=== PATIENT | male | born 1990 | race Caucasian/White ===

== ENCOUNTER 2020-08-13 21:59 | Emergency (ER) | payer OTHER, SELFPAY ==
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
[2020-08-13 22:02] VITALS: BP 143/97; PULSE 90; RESP 18; TEMP 36.2; O2SAT 99
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
[2020-08-13] MEDS: MORPHINE SULFATE (*CRX) 4 MG/ML INJ IV PUSH (22:50)
[2020-08-13 22:57] LABS: Basophils Absolute Auto 0.1 K/mm3 (0.0-0.1); Basophils Percent Auto 0.9 % (0.2-1.2); Eosinophils Absolute Auto 0.2 K/mm3 (0-0.3); Eosinophils Percent Auto 1.6 % (0-4.4); Hematocrit 44.2 % (42.0-52.0); Hemoglobin 14.4 g/dL (14.0-18.0); Immature Granulocyte Absolute 0.07 K/mm3 (0.00-0.031); Immature Granulocyte Percent A 0.8 % (0-0.5); Lymphocytes Absolute Auto 2.72 K/mm3 (0.9-3.2); Lymphocytes Percent Auto 29.7 % (18.3-44.2); Mean Corpuscular HGB Conc 32.6 g/dl (32-36); Mean Corpuscular Hemoglobin 29.3 pg (26-34); Mean Platelet Volume 10.4 fl (7.4-10.4); Monocytes Absolute Auto 0.6 K/mm3 (0.1-0.6); Monocytes Percent Auto 6.3 % (2.6-8.5); Neutrophils Absolute Auto 5.6 K/mm3 (1.3-6.7); Neutrophils Percent Auto 60.7 % (45.5-73.1); Platelet Count Result 312 k/mm3 (150-375); Red Blood Count 4.91 M/mm3 (4.6-6.20); Red Cell Distribution Width 12.8 % (11.5-14.5); White Blood Count 9.2 K/mm3 (4.5-10.0)
[2020-08-13 23:07] LABS: Alanine Aminotransferase 17 U/L (4-50); Albumin Level 4.3 g/dL (3.5-5.1); Alkaline Phosphatase 103 U/L (38-126); Anion Gap 6 mmol/L (8-16); Aspartate Amino Transferase 28 U/L (17-59); Bilirubin,Total 0.3 mg/dL (0.2-1.3); Blood Urea Nitrogen 14 mg/dL (9-20); Calcium 9.1 mg/dL (8.4-10.2); Carbon Dioxide 28 mmol/L (22-30); Chloride 106 mmol/L (98-107); Estimated Glomerular Filt Rate > 60; Glucose 116 mg/dL (75-110); Potassium 3.8 mmol/L (3.4-5.0); Sodium 140 mmol/L (137-145)
[2020-08-13 23:57] VITALS: BP 140/88; PULSE 75; RESP 14; O2SAT 100
[2020-08-14] MEDS: HYDROmorphone HCL INJ (*CRX) 1 MG/ML SYR IV PUSH (00:20)
[2020-08-14 01:02] VITALS: BP 135/88; PULSE 80; RESP 18; O2SAT 99
[2020-08-14 01:53] VITALS: BP 126/97; PULSE 80; RESP 18; O2SAT 99
[2020-08-14 02:55] VITALS: BP 130/99; PULSE 75; RESP 20; O2SAT 99
[2020-08-14 04:03] VITALS: BP 130/90; PULSE 80; RESP 16; O2SAT 100
[2020-08-14 04:30] VITALS: BP 142/97; PULSE 84; RESP 18; O2SAT 99
== END 2020-08-14 04:33 | disposition short-term general hospital (02) ==
PROVIDERS: Emergency Provider Emergency Medicine
DX: S02.642A Fracture of ramus of left mandible, initial encounter for closed fracture (principal); S02.40DA Maxillary fracture, left side, initial encounter for closed fracture; Y04.2XXA Assault by strike against or bumped into by another person, initial encounter
CPT/HCPCS: 36415; 70486; 80053; 85025; 96374; 99285; J1170; J2270

== ENCOUNTER 2022-01-18 10:28 | Emergency (ER) | payer OTHER, SELFPAY ==
[2022-01-18 10:29] VITALS: BP 115/90; PULSE 97; RESP 16; TEMP 36.5; O2SAT 99
--- NOTE | 2022-01-18 11:29 | ED.URI ---
HPI - URI/Sore Throat General Chief Complaint: Upper Respiratory Infection Stated Complaint: COVID+ Time Seen by Provider: 01/18/22 10:58 Source: patient Mode of arrival: ambulatory Limitations: no limitations History of Present Illness HPI Narrative: Patient presents to the ER for cold symptoms present since yesterday. Reports he is in group therapy and was told he should come to the ER because he tested positive for COVID. Reports he has had a sore throat, cough, and fevers since yesterday. He has been taking [id number] medications for this with improvement. He had a fever today group therapy and they did a COVID swab that was positive. They sent him here to be evaluated. He denies any chest pain or shortness of breath. Related Data Home Medications Medication Instructions Recorded Confirmed No Home Medications 08/13/20 08/13/20 Allergies Allergy/AdvReac Type Severity Reaction Status Date / Time No Known Allergies Allergy Verified 01/18/22 11:04 Review of Systems Review of Systems: CONSTITUTIONAL: Reports fever ENT: Reports sore throat CARDIOVASCULAR: Denies chest pain RESPIRATORY: Reports cough. Denies dyspnea. All systems reviewed & are unremarkable except as noted in HPI and below PMFSH Past Medical History Medical History (Updated 01/18/22 @ 11:37 by Bess Lowry PA-C) No active medical problems Social History Social History (Updated 01/18/22 @ 11:32 by Bess Lowry PA-C) Sexual Orientation (if Verbalized by the Patient): Straight or Heterosexual Exam Narrative: GENERAL: Well-appearing, well-nourished, and in no acute distress. HEAD: Normocephalic, atraumatic. EYES: EOMI. ENT: Nares clear, no rhinorrhea or epistaxis. Mucous membranes moist. Oropharynx without tonsillar hypertrophy exudate or other lesions. Bilateral TMs pearly fuller non-bulging NECK: Supple. No adenopathy or masses. CHEST: Clear to auscultation. No respiratory distress. No wheezes rales or rhonchi HEART: Regular rate and rhythm. No murmur heard. Normal peripheral pulses. EXTREMITIES: Normal range of motion. No edema. SKIN: Warm, dry, no rash. NEURO: No focal deficits. Alert and oriented x3. PSYCH: Normal mood and affect Course Vital Signs Vital signs: Vital Signs Temperature 97.7 F 01/18/22 10:29 Pulse Rate 97 01/18/22 10:29 Respiratory Rate 16 01/18/22 10:29 Blood Pressure 115/90 01/18/22 10:29 Pulse Oximetry 99 01/18/22 10:29 Oxygen Delivery Room Air 01/18/22 10:29 Temperature 97.7 F 01/18/22 10:29 Pulse Rate 97 01/18/22 10:29 Respiratory Rate 16 01/18/22 10:29 Blood Pressure 115/90 01/18/22 10:29 Pulse Oximetry 99 01/18/22 10:29 Oxygen Delivery Room Air 01/18/22 10:29 MDM - URI/Sore Throat MDM Narrative Medical decision making narrative: Patient presents to the emergency department from group therapy. Reportedly tested positive for COVID and they wanted him to be seen in the ER. He is afebrile and nontoxic-appearing. Lungs are clear on exam. Oxygen saturation is normal on room air. He does not report any chest pain or shortness of breath. Reports he has been taking [id number] cold medications with improvement. He has felt ill since yesterday. He is not currently vaccinated. He has had COVID several times before. Has never been hospitalized for this. He does not wish to have any further evaluation with blood work or chest x-ray. He also does not wish to be prescribed antiviral for COVID. He is stable and felt appropriate for further outpatient evaluation. He was given warnings to return to the ER Critical Care Time Critical Care Time Critical Care Time: No Discharge Plan Discharge Clinical Impression: COVID-19 Patient Disposition: Home, Self-Care Condition: Stable Instructions: COVID-19 (Coronavirus Disease 2019) (ED), How to Recover from COVID-19 at Home (ED) Additional Instructions: Return to the emergency departm
== END 2022-01-18 11:54 | disposition home or self-care (01) ==
LOC: ANHED 11:45
PROVIDERS: Emergency Provider Emergency Medicine
DX: U07.1 COVID-19 (principal); Z28.310 Unvaccinated for COVID-19; Z86.16 Personal history of COVID-19
CPT/HCPCS: 99281; 99283